=== PATIENT | female | born 1990 | race Caucasian/White ===

== ENCOUNTER 2021-10-13 16:07 | Emergency (ER) | payer OTHER ==
[~2021-10-13] VITALS: Ht 172.7 cm; Wt 79.4 kg
[2021-10-13 17:03] LABS: BASO % 0.4 % (0.0-1.0); EOS # 0.1 10*3/uL (0.0-0.4); EOS % 1.1 % (1.0-4.0); HEMATOCRIT 36.1 % (37.0-47.0); LYMPH # 1.9 10*3/uL (1.3-4.4); LYMPH % 18.4 % (27.0-41.0); MEAN CELL VOLUME 75.8 fl (81.0-99.0); MEAN CORPUSCULAR HGB 23.5 pg (27.0-31.0); MEAN PLATELET VOLUME 9.7 fl (9.6-12.3); MONO # 0.7 10*3/uL (0.1-1.0); MONO % 7.1 % (3.0-9.0); NEUT # 7.3 10*3/uL (2.3-7.9); NEUT % 72.6 % (47.0-73.0); PLATELET COUNT AUTOMATED 311 10*3/uL (130-400); RED BLOOD COUNT 4.76 10*6/uL (4.10-5.10); RED CELL DISTRI WIDTH 18.1 % (0-14.5); WHITE BLOOD COUNT 10.1 10*3/uL (4.8-10.8)
[2021-10-13 17:25] LABS: ALKALINE PHOSPHATASE 130 U/L (45-117); BUN 11 mg/dl (7-24); CHLORIDE 110 mmol/L (98-107); CREATININE 0.83 mg/dL (0.55-1.02); LIPASE 126 U/L (73-393); SGOT/AST 15 IU/L (3-35); SGPT/ALT 20 U/L (12-78); SODIUM 139 mmol/L (136-145); TOTAL PROTEIN 7.5 gm/dL (6.4-8.2)
[2021-10-13 17:27] LABS: BILIRUBIN Negative (Negative); BLOOD Negative (Negative); CLARITY Clear (Clear); COLOR Yellow (Yellow); GLUCOSE Negative (Negative); KETONE Negative (Negative); LEUKO ESTERASE Trace (Negative); NITRITE Negative (Negative); UROBILINOGEN 0.2 E.U./dl (0.0-1.0)
[2021-10-13 17:32] LABS: BACTERIA 2+
[2021-10-13 17:49] LABS: BETA-HCG, QUANT < 1.0 mIU/mL (1-3)
[2021-10-13] MEDS ORDERED: Phenergan25 MG PO (20:37)
[2021-10-13] MEDS ORDERED: CYCLOBENZAPRINE10 MG PO (20:37)
== END 2021-10-13 20:45 | disposition home or self-care (01) ==
LOC: ED 16:07
PROVIDERS: Emergency Medicine
DX: K52.9 Noninfective gastroenteritis and colitis, unspecified (principal); M62.830 Muscle spasm of back; Z88.0 Allergy status to penicillin; Z88.6 Allergy status to analgesic agent; Z88.8 Allergy status to other drugs, medicaments and biological substances

== ENCOUNTER → 2022-04-24 | Day surgery (SDC) | payer OTHER ==
[2022-04-21 13:39] VITALS: BP 117/76
[~2022-04-24] VITALS: Ht 172.7 cm; Wt 83.9 kg
[~2022-04-24] MED LIST: CYCLOBENZAPRINE10 MG PO; LITHIUM CARBON300 MG PO; OMEPRAZOLE40 MG PO; Phenergan25 MG PO; ZOLOFT50 MG PO
[2022-04-24 08:00] VITALS: BP 105/63
[2022-04-24 10:18] VITALS: BP 113/67
[2022-04-24 10:33] VITALS: BP 103/60
[2022-04-24 10:48] VITALS: BP 107/66
[2022-04-24 11:03] VITALS: BP 99/66
[2022-04-24 11:18] VITALS: BP 101/54
== END | disposition home or self-care (01) ==
LOC: SDC 04-21 13:15
PROVIDERS: ATTEND Obstetrics & Gynecology
DX: Z30.2 Encounter for sterilization (principal); F41.9 Anxiety disorder, unspecified; F32.9 Major depressive disorder, single episode, unspecified; M79.7 Fibromyalgia; Z88.0 Allergy status to penicillin; Z91.048 Other nonmedicinal substance allergy status; Z88.8 Allergy status to other drugs, medicaments and biological substances; Z98.84 Bariatric surgery status

== ENCOUNTER → 2023-07-16 | Outpatient (CLI) | payer SELFPAY ==
[2023-07-16 10:30] LABS: BASO % 0.4 % (0.0-1.0); EOS # 0.1 10*3/uL (0.0-0.4); EOS % 1.6 % (1.0-4.0); HEMATOCRIT 44.2 % (37.0-47.0); LYMPH # 1.7 10*3/uL (1.3-4.4); LYMPH % 23.8 % (27.0-41.0); MEAN CELL VOLUME 90.9 fl (81.0-99.0); MEAN CORPUSCULAR HGB 29.8 pg (27.0-31.0); MEAN CORPUSCULAR HGB CONC 32.8 g/dl (33.0-37.0); MEAN PLATELET VOLUME 10.3 fl (9.6-12.3); MONO # 0.6 10*3/uL (0.1-1.0); MONO % 8.2 % (3.0-9.0); NEUT # 4.6 10*3/uL (2.3-7.9); NEUT % 65.7 % (47.0-73.0); PLATELET COUNT AUTOMATED 267 10*3/uL (130-400); RED BLOOD COUNT 4.86 10*6/uL (4.10-5.10); RED CELL DISTRI WIDTH 12.8 % (0-14.5); RETICULOCYTE % 1.92 % (0.50-2.50)
[2023-07-16 10:54] LABS: BILIRUBIN Negative (Negative); BLOOD Negative (Negative); CLARITY Turbid (Clear); COLOR Yellow (Yellow); GLUCOSE Negative (Negative); KETONE Negative (Negative); LEUKO ESTERASE Negative (Negative); NITRITE Negative (Negative); PH 6.5 (4.5-8.0); SPECIFIC GRAVITY 1.015 (1.001-1.030)
[2023-07-16 11:04] LABS: ALKALINE PHOSPHATASE 89 U/L (46-116); CHLORIDE 107 mmol/L (98-107); CHOLESTEROL 192 mg/dL (<200); GAMMA GLUTAMYL TRANSPEPTIDASE 13 U/L (0-73); LDL CHOLESTEROL 130 mg/dL (9-159); POTASSIUM 3.9 mmol/L (3.4-5.1); SGPT/ALT 9 U/L (5-49); T3 UPTAKE 30.4 % (22.4-36.7); THYROXINE (T4) TOTAL 6.5 ug/dl (4.5-10.9); TOTAL PROTEIN 6.8 gm/dL (6.0-8.0); TRIGLYCERIDES 102 mg/dl (<150); URIC ACID 7.2 mg/dL (3.1-7.8)
[2023-07-16 11:06] LABS: BUN < 5 mg/dl (9-23)
[2023-07-16 11:12] LABS: VITAMIN D, 25-HYDROXY 15.5 ng/mL (30-100)
[2023-07-16 12:13] LABS: BACTERIA 1+; EPITHELIAL CELLS TNTC; MUCOUS 1+
[2023-07-17 12:07] LABS: ANTI-DSDNA ANTIBODIES 1 IU/mL (0-9)
== END | disposition home or self-care (01) ==
LOC: LAB 10:05
PROVIDERS: ATTEND Family Medicine
DX: E78.5 Hyperlipidemia, unspecified (principal); E55.9 Vitamin D deficiency, unspecified; R79.89 Other specified abnormal findings of blood chemistry; R74.8 Abnormal levels of other serum enzymes; R53.83 Other fatigue

== ENCOUNTER 2023-10-29 16:20 | Emergency (ER) | payer BC ==
[~2023-10-29] VITALS: Ht 172.7 cm; Wt 83.9 kg
[2023-10-29] MEDS ORDERED: IOHEXOL 300 MG/ML 100 ML VIAL IV ONE (16:50)
[2023-10-29 16:59] LABS: BASO % 0.4 % (0.0-1.0); EOS # 0.1 10*3/uL (0.0-0.4); EOS % 0.9 % (1.0-4.0); HEMATOCRIT 41.7 % (37.0-47.0); LYMPH # 2.7 10*3/uL (1.3-4.4); LYMPH % 24.3 % (27.0-41.0); MEAN CELL VOLUME 89.7 fl (81.0-99.0); MEAN CORPUSCULAR HGB 30.1 pg (27.0-31.0); MEAN CORPUSCULAR HGB CONC 33.6 g/dl (33.0-37.0); MEAN PLATELET VOLUME 10.2 fl (9.6-12.3); MONO # 0.7 10*3/uL (0.1-1.0); MONO % 6.6 % (3.0-9.0); NEUT # 7.4 10*3/uL (2.3-7.9); NEUT % 67.4 % (47.0-73.0); PLATELET COUNT AUTOMATED 288 10*3/uL (130-400); RED BLOOD COUNT 4.65 10*6/uL (4.10-5.10); RED CELL DISTRI WIDTH 14.1 % (0-14.5)
[2023-10-29 17:08] LABS: ACT PARTIAL THROMBO TIME 25.7 SECONDS (20.0-32.1)
[2023-10-29 17:18] LABS: BILIRUBIN Negative (Negative); BLOOD Negative (Negative); CLARITY Cloudy (Clear); COLOR Yellow (Yellow); GLUCOSE Negative (Negative); KETONE Negative (Negative); LEUKO ESTERASE Negative (Negative); NITRITE Negative (Negative); SPECIFIC GRAVITY <= 1.005 (1.001-1.030); UROBILINOGEN 0.2 E.U./dl (0.0-1.0)
[2023-10-29 17:19] LABS: ALKALINE PHOSPHATASE 114 U/L (46-116); CHLORIDE 101 mmol/L (98-107); LIPASE 61 U/L (12-53); POTASSIUM 3.3 mmol/L (3.4-5.1); SGPT/ALT 24 U/L (5-49); TOTAL PROTEIN 6.5 gm/dL (6.0-8.0)
[2023-10-29 17:20] LABS: BUN < 5 mg/dl (9-23)
[2023-10-29 17:29] LABS: EPITHELIAL CELLS 16-20; MUCOUS 1+; RBC 0-2 rbc/hpf (0-2)
[2023-10-29] MEDS ORDERED: SODIUM CHLORIDE 0.9% 1,000 ML IV ONE (17:30)
[2023-10-29] MEDS ORDERED: POTASSIUM CHLORIDE 20 MEQ TAB PO ONE (19:10)
[2023-10-29] MEDS ORDERED: PROMETHAZINE12.5 M3 PO (19:10)
[2023-10-29] MEDS ORDERED: Promethazine Hydrochloride 25 MG/ML VIAL IM ONE (19:10)
[2023-10-29] MEDS ORDERED: PANTOPRAZOLE SO40 MG PO (19:10)
[2023-10-29] MEDS ORDERED: OXYCODONE HCL (IR) 5 MG TAB PO ONE (19:25)
== END 2023-10-29 19:33 | disposition home or self-care (01) ==
LOC: ED 16:20
PROVIDERS: Nurse Practitioner Family
DX: K29.70 Gastritis, unspecified, without bleeding (principal); E87.6 Hypokalemia; E87.1 Hypo-osmolality and hyponatremia; R11.2 Nausea with vomiting, unspecified; Z88.0 Allergy status to penicillin; Z91.048 Other nonmedicinal substance allergy status; Z88.6 Allergy status to analgesic agent; Z79.899 Other long term (current) drug therapy; Z98.84 Bariatric surgery status

== ENCOUNTER → 2023-11-05 | Outpatient (CLI) | payer BC ==
[~2023-11-05] MED LIST changes: +PANTOPRAZOLE SO40 MG PO; +PROMETHAZINE12.5 M3 PO
[2023-11-05 12:08] LABS: BILIRUBIN Negative (Negative); BLOOD Negative (Negative); CLARITY Clear (Clear); COLOR Yellow (Yellow); GLUCOSE Negative (Negative); KETONE Negative (Negative); LEUKO ESTERASE Negative (Negative); NITRITE Negative (Negative); UROBILINOGEN 0.2 E.U./dl (0.0-1.0)
[2023-11-05 12:09] LABS: BASO % 0.2 % (0.0-1.0); EOS # 0.1 10*3/uL (0.0-0.4); HEMATOCRIT 39.4 % (37.0-47.0); MEAN CELL VOLUME 91.2 fl (81.0-99.0); MEAN CORPUSCULAR HGB 30.1 pg (27.0-31.0); MEAN PLATELET VOLUME 9.8 fl (9.6-12.3); MONO # 0.5 10*3/uL (0.1-1.0); MONO % 5.8 % (3.0-9.0); NEUT # 5.6 10*3/uL (2.3-7.9); NEUT % 68.5 % (47.0-73.0); PLATELET COUNT AUTOMATED 258 10*3/uL (130-400); RED BLOOD COUNT 4.32 10*6/uL (4.10-5.10); RED CELL DISTRI WIDTH 15.4 % (0-14.5); RETICULOCYTE % 2.86 % (0.50-2.50); WHITE BLOOD COUNT 8.1 10*3/uL (4.8-10.8)
[2023-11-05 12:18] LABS: RBC 0-2 rbc/hpf (0-2); WBC 0-2 wbc/hpf (0-5)
[2023-11-05 12:19] LABS: BACTERIA TRACE
[2023-11-05 12:41] LABS: T3 UPTAKE 15.4 % (22.4-36.7); THYROXINE (T4) TOTAL 9.7 ug/dl (4.5-10.9); VITAMIN D, 25-HYDROXY 7.1 ng/mL (30-100)
== END | disposition home or self-care (01) ==
LOC: LAB 11:25
PROVIDERS: Family Medicine; ATTEND Social Worker Clinical
DX: E78.5 Hyperlipidemia, unspecified (principal); R79.89 Other specified abnormal findings of blood chemistry; R53.83 Other fatigue; E55.9 Vitamin D deficiency, unspecified

== ENCOUNTER 2024-02-11 14:49 | Emergency (ER) | payer BC ==
[~2024-02-11] VITALS: Ht 172.7 cm; Wt 83.9 kg
[2024-02-11] MEDS ORDERED: Promethazine Hydrochloride 25 MG/ML VIAL IV ONE (18:25)
[2024-02-11] MEDS ORDERED: SODIUM CHLORIDE 0.9% 1,000 ML IV ONE (18:25)
[2024-02-11 18:48] LABS: BASO % 0.3 % (0.0-1.0); EOS # 0.1 10*3/uL (0.0-0.4); EOS % 0.5 % (1.0-4.0); HEMATOCRIT 46.1 % (37.0-47.0); LYMPH # 1.8 10*3/uL (1.3-4.4); LYMPH % 15.6 % (27.0-41.0); MEAN CORPUSCULAR HGB 30.3 pg (27.0-31.0); MEAN PLATELET VOLUME 9.7 fl (9.6-12.3); MONO # 0.5 10*3/uL (0.1-1.0); MONO % 4.6 % (3.0-9.0); NEUT # 9.3 10*3/uL (2.3-7.9); NEUT % 78.7 % (47.0-73.0); PLATELET COUNT AUTOMATED 332 10*3/uL (130-400); RED BLOOD COUNT 5.01 10*6/uL (4.10-5.10); WHITE BLOOD COUNT 11.8 10*3/uL (4.8-10.8)
[2024-02-11 19:05] LABS: ALKALINE PHOSPHATASE 92 U/L (46-116); BUN < 5 mg/dl (9-23); CHLORIDE 102 mmol/L (98-107); LIPASE 164 U/L (12-53); POTASSIUM 3.7 mmol/L (3.4-5.1); SGPT/ALT 14 U/L (5-49); TOTAL PROTEIN 7.2 gm/dL (6.0-8.0)
[2024-02-11 19:25] LABS: BILIRUBIN Negative (Negative); BLOOD Negative (Negative); CLARITY Clear (Clear); COLOR Yellow (Yellow); GLUCOSE Negative (Negative); KETONE Negative (Negative); LEUKO ESTERASE Negative (Negative); NITRITE Negative (Negative); PH 7.5 (4.5-8.0)
[2024-02-11 19:37] LABS: EPITHELIAL CELLS 16-20; MUCOUS 1+; RBC 0-2 rbc/hpf (0-2); WBC 0-2 wbc/hpf (0-5)
[2024-02-11] MEDS ORDERED: Phenergan25 MG PO (20:47)
== END 2024-02-11 20:58 | disposition home or self-care (01) ==
LOC: ED 14:49
PROVIDERS: Nurse Practitioner Family
DX: R11.2 Nausea with vomiting, unspecified (principal); Z88.0 Allergy status to penicillin; Z91.048 Other nonmedicinal substance allergy status; Z88.6 Allergy status to analgesic agent; Z88.8 Allergy status to other drugs, medicaments and biological substances; Z79.899 Other long term (current) drug therapy; Z98.84 Bariatric surgery status

== ENCOUNTER → 2024-04-03 | Outpatient (CLI) | payer BC ==
[2024-04-03 11:38] LABS: BASO % 0.5 % (0.0-1.0); EOS # 0.2 10*3/uL (0.0-0.4); EOS % 2.4 % (1.0-4.0); HEMATOCRIT 42.4 % (37.0-47.0); LYMPH # 2.1 10*3/uL (1.3-4.4); LYMPH % 27.5 % (27.0-41.0); MEAN CELL VOLUME 97.9 fl (81.0-99.0); MEAN CORPUSCULAR HGB 31.2 pg (27.0-31.0); MEAN CORPUSCULAR HGB CONC 31.8 g/dl (33.0-37.0); MEAN PLATELET VOLUME 10.1 fl (9.6-12.3); MONO # 0.5 10*3/uL (0.1-1.0); MONO % 6.8 % (3.0-9.0); NEUT # 4.7 10*3/uL (2.3-7.9); NEUT % 62.5 % (47.0-73.0); PLATELET COUNT AUTOMATED 239 10*3/uL (130-400); RED BLOOD COUNT 4.33 10*6/uL (4.10-5.10); RETICULOCYTE % 1.98 % (0.50-2.50); WHITE BLOOD COUNT 7.5 10*3/uL (4.8-10.8)
[2024-04-03 11:54] LABS: BILIRUBIN Negative (Negative); BLOOD Negative (Negative); CLARITY Cloudy (Clear); COLOR Yellow (Yellow); GLUCOSE Negative (Negative); KETONE Negative (Negative); LEUKO ESTERASE Trace (Negative); NITRITE Negative (Negative); PH 6.5 (4.5-8.0)
[2024-04-03 12:03] LABS: EPITHELIAL CELLS TNTC; RBC 0-2 rbc/hpf (0-2)
[2024-04-03 12:22] LABS: ALKALINE PHOSPHATASE 69 U/L (46-116); BUN 7 mg/dl (9-23); CHLORIDE 108 mmol/L (98-107); CHOLESTEROL 179 mg/dL (<200); GAMMA GLUTAMYL TRANSPEPTIDASE 15 U/L (0-73); LDL CHOLESTEROL 91 mg/dL (9-159); POTASSIUM 3.9 mmol/L (3.4-5.1); SGPT/ALT 10 U/L (5-49); T3 UPTAKE 18.3 % (22.4-36.7); THYROXINE (T4) TOTAL 10.6 ug/dl (4.5-10.9); TOTAL PROTEIN 6.8 gm/dL (6.0-8.0); TRIGLYCERIDES 118 mg/dl (<150)
[2024-04-03 12:43] LABS: VITAMIN D, 25-HYDROXY 28.4 ng/mL (30-100)
[2024-04-04 13:07] LABS: ANTI-DSDNA ANTIBODIES 1 IU/mL (0-9)
== END | disposition home or self-care (01) ==
LOC: LAB 11:16
PROVIDERS: ATTEND Family Medicine
DX: R79.89 Other specified abnormal findings of blood chemistry (principal); R53.83 Other fatigue; E78.5 Hyperlipidemia, unspecified; E55.9 Vitamin D deficiency, unspecified

== ENCOUNTER 2025-07-19 11:16 | Emergency (ER) | payer SELFPAY ==
[~2025-07-19] VITALS: Wt 79.4 kg
[2025-07-19] MEDS ORDERED: SODIUM CHLORIDE 0.9% 1,000 ML IV ONE (12:15)
[2025-07-19 12:39] LABS: BASO # 0.0 10*3/uL (0.0-0.1); BASO % 0.5 % (0.0-1.0); EOS # 0.2 10*3/uL (0.0-0.4); EOS % 2.3 % (1.0-4.0); MEAN CELL VOLUME 91.4 fl (81.0-99.0); MEAN CORPUSCULAR HGB 30.5 pg (27.0-31.0); MEAN PLATELET VOLUME 9.8 fl (9.6-12.3); MONO # 0.7 10*3/uL (0.1-1.0); MONO % 8.6 % (3.0-9.0); NEUT # 4.9 10*3/uL (2.3-7.9); NEUT % 59.9 % (47.0-73.0); NUCLEATED RED BLOOD CELL 0.0 % (0.0-0.0); NUCLEATED RED BLOOD CELL 0.0 10*3/uL (0.0-0.0); PLATELET COUNT AUTOMATED 226 10*3/uL (130-400); RED CELL DISTRI WIDTH 13.0 % (0-14.5)
[2025-07-19 12:57] LABS: BUN 8 mg/dl (9-23)
[2025-07-19] MEDS ORDERED: Promethazine Hydrochloride 25 MG/ML VIAL IV ONE (14:05)
[2025-07-19] MEDS ORDERED: AZITHROMYCIN 250 MG TAB PO ONE (14:35)
[2025-07-19] MEDS ORDERED: ZITHROMAX250 MG PO (15:34)
== END 2025-07-19 15:45 | disposition home or self-care (01) ==
LOC: ED 11:16
PROVIDERS: Nurse Practitioner Family
DX: J06.9 Acute upper respiratory infection, unspecified (principal); Z88.0 Allergy status to penicillin; Z88.6 Allergy status to analgesic agent; Z79.899 Other long term (current) drug therapy; Z98.84 Bariatric surgery status; Z20.822 Contact with and (suspected) exposure to COVID-19